=== PATIENT | male | born 1960 ===

== ENCOUNTER 2023-03-04 15:37 | Outpatient (REF) | payer MEDICARE, MEDICAID, SELFPAY | END 2023-03-04 15:38 | disposition home or self-care (01) | LOC: HO.US 15:37 | PROVIDERS: PCP Pediatrics; Visit Provider Pediatrics | DX: R22.1 Localized swelling, mass and lump, neck (principal) | CPT/HCPCS: 76536 ==

== ENCOUNTER 2024-02-03 11:01 | Outpatient (REF) | payer MEDICARE, SELFPAY ==
--- NOTE | ~2024-02-03 | XR_ITS ---
EXAMINATION: XR ANKLE, LEFT CLINICAL INFORMATION: Chronic pain left ankle. COMPARISON: None available. TECHNIQUE: AP, lateral, and mortise views of the left ankle. FINDINGS: Radiopaque marker placed by technologist to indicate the area of concern as indicated by the patient along the lateral malleolus. Ankle joint effusion present. Soft tissue swelling at the ankle. Mild spurring along the posterior aspect of the calcaneus. Ankle mortise is premiered. No acute displaced fractures appreciated. XR/XR ankle LT min 3V IMPRESSION: Ankle joint effusion. Soft tissue swelling. No acute displaced fracture. Recommend follow-up imaging in 10-14 days if fracture is suspected.
== END 2024-02-03 11:02 | disposition home or self-care (01) ==
LOC: HO.XRAY 11:01
PROVIDERS: PCP Pediatrics; Visit Provider Family Medicine
DX: M25.572 Pain in left ankle and joints of left foot (principal); G89.29 Other chronic pain
CPT/HCPCS: 73610

== ENCOUNTER 2024-04-16 08:59 | Outpatient (AMB) | payer MEDICARE, SELFPAY ==
--- NOTE | 2024-04-16 09:15 | A.OFFVIS_ITS ---
Vital Signs 04/16/24 09:18 Weight 160 lb Intake Visit Reasons: localized swelling/mass neck Intake Note: Pt states, I've had this bump on my back for 4-5 years. c/o 2 areas - lower back and upper back. Gear Lapping Machine Operator Required: Yes Gear Lapping Machine Operator Language: Corporate Scheduler Services: Gear Lapping Machine Operator Present Gear Lapping Machine Operator Name: Helene KIRKPATRICK Allergies No Known Allergies Allergy (Verified 04/16/24 09:20) Medication List - Last Reconciled 04/16/24 by Mundo Eduardo, RN clonazepam 1 mg PO BEDTIME omeprazole 20 mg PO DAILY HPI Comments Details: Patient was who presents for evaluation to a soft tissue masses. Were uninvolved with the posterior neck and 1 involves the right lower flank. Patient has lost a significant amount of weight and has noticed these 2 masses. The are increasing in size, becoming more symptomatic. He would like to have them removed. Patient has no such lesions elsewhere. Chart was reviewed and patient evaluate [facility] Medical History (Updated 04/16/24 @ 09:23 by Mundo Eduardo, HENNA) Chronic motor tic disorder Surgical History (Updated 04/16/24 @ 09:34 by Jeison Otto MD) History of colonoscopy Family History (Updated 04/16/24 @ 09:26 by Mundo Eduardo, RN) Father Prostate cancer Social History Alcohol intake: never Patient Tobacco Use Status: Never used Tobacco Physical Exam Chest Other: Chest breath sounds bilaterally, HS 1 in 2 GI Other: Abdomen is soft, benign Back/Spine/Pelvis Other: Upper posterior neck a proximally 4 x 3 cm soft tissue mass consistent with either lipoma or sebaceous cyst. 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 All questions answered. Arrangements were made for this. Coding Level of Care Code New Pt Level 5 (61758) Diagnoses Lipomatosis gigantea E88.2 Lipoma D17.9
== END 2024-04-16 09:30 | disposition home or self-care (01) ==
PROVIDERS: PCP Pediatrics; Visit Provider Surgery
DX: E88.2 Lipomatosis, not elsewhere classified (principal); D17.9 Benign lipomatous neoplasm, unspecified
CPT/HCPCS: 99204

== ENCOUNTER → 2024-04-16 08:59 | Outpatient (BNVA) | payer MEDICARE, SELFPAY | PROVIDERS: PCP Pediatrics; Visit Provider Surgery | DX: E88.2 Lipomatosis, not elsewhere classified (principal); D17.9 Benign lipomatous neoplasm, unspecified | CPT/HCPCS: 99202 ==

== ENCOUNTER → 2024-05-03 10:13 | Day surgery (SDC) | payer MEDICARE, SELFPAY ==
[2024-05-01 13:54] VITALS: BMI 28.0
--- NOTE | 2024-05-02 08:44 | P.HPSUR_ITS ---
Pre-Procedural Eval Section A - 24 Hr Update-Section A only Date of Service: 05/03/24 The patient is an INPATIENT: No Changes since office visit: No Cold of Flu in the past 2 weeks, No New Medical Problems, No Changes in Medication and No Patient answered all questions Section B - Complete if H&P > 30 days Chief Complaint: Lipomatosis, not elsewhere classified Allergies: Allergies Allergy/AdvReac Type Severity Reaction Status Date / Time No Known Allergies Allergy Verified 04/16/24 09:20 Review of Systems Sugical H&P ROS: Negative: Constitution, Cardiovascular, Respiratory, Neurological, Psychiatric, Hem-Onc, Allergic/Immunologic, Gastrointestinal, Genitourinary, Musculoskeletal, Integumentary, Endocrine and Eyes/Ears/Nos e/Throat Exam Surgical H&P Exam: Normal: HEENT, Normal: Heart, Normal: Lungs, Normal: Extremities, Normal: Abdomen, Normal: Skin and Normal: Neurological Plan I have reviewed the history and physical and performed a pertinent physical examination on my patient. No changes have occurred unless specified. Time Spent With Patient Time: Total time managing care of this patient today ____ minutes.
--- NOTE | 2024-05-02 09:46 | HO.ANESPROP2 ---
HPI - Anesthesia Eval Consult details Narrative: 64yo M for Right Wide Local Excision LG Flank Lipoma, Posterior Wide Local Excision Neck Lipoma PMFSH Active Problems Active Problems: All Active Problems Lipoma (Acute) Lipomatosis gigantea (Acute) GERD (gastroesophageal reflux disease) (Acute) Past Medical History Medical History (Updated 04/16/24 @ 09:23 by Mundo Eduardo RN) Chronic motor tic disorder Family History Family History (Updated 04/16/24 @ 09:26 by Mundo Eduardo RN) Father Prostate cancer Surgical History Surgical History (Updated 04/16/24 @ 09:34 by Jeison Otto MD) History of colonoscopy Social History Social History (Updated 04/16/24 @ 09:34 by Mundo Eduardo RN) Alcohol intake: never Patient Tobacco Use Status: Never used Tobacco Meds Allergies Allergy/AdvReac Type Severity Reaction Status Date / Time No Known Allergies Allergy Verified 04/16/24 09:20 Home Medications ?Medication ?Instructions ?Recorded ?Confirmed ?Last Taken ?Type clonazepam 1 mg tablet 1 mg PO BEDTIME 04/16/24 04/16/24 Unknown History omeprazole 20 mg capsule,delayed 20 mg PO DAILY 04/16/24 04/16/24 Unknown History release Exam Height,Weight and Vital Signs: Height 5 ft 3 in Weight 71.668 kg Assessment and Plan Assessment Anesthesia Assessment: Chart Reviewed
== END ==
LOC: HO.SSS 10:14
PROVIDERS: PCP Pediatrics; Visit Provider Surgery
DX: D17.1 Benign lipomatous neoplasm of skin and subcutaneous tissue of trunk (principal); D17.0 Benign lipomatous neoplasm of skin and subcutaneous tissue of head, face and neck; Z53.8 Procedure and treatment not carried out for other reasons

== ENCOUNTER → 2024-05-10 08:39 | Day surgery (SDC) | payer MEDICARE, SELFPAY ==
--- NOTE | 2024-05-09 14:15 | P.HPSUR_ITS ---
Pre-Procedural Eval Section A - 24 Hr Update-Section A only Date of Service: 05/10/24 The patient is an INPATIENT: No Changes since office visit: No Cold of Flu in the past 2 weeks, No New Medical Problems, No Changes in Medication and No Patient answered all questions Section B - Complete if H&P > 30 days Chief Complaint: Lipomatosis,Benign lipomatous neoplasm, Allergies: Allergies Allergy/AdvReac Type Severity Reaction Status Date / Time No Known Allergies Allergy Verified 04/16/24 09:20 Review of Systems Sugical H&P ROS: Negative: Constitution, Cardiovascular, Respiratory, Neurological, Psychiatric, Hem-Onc, Allergic/Immunologic, Gastrointestinal, Genitourinary, Musculoskeletal, Integumentary, Endocrine and Eyes/Ears/N ose/Throat Exam Surgical H&P Exam: Normal: HEENT, Normal: Heart, Normal: Lungs, Normal: Extremities, Normal: Abdomen, Normal: Skin and Normal: Neurological Plan I have reviewed the history and physical and performed a pertinent physical examination on my patient. No changes have occurred unless specified. Time Spent With Patient Time: Total time managing care of this patient today ____ minutes.
== END ==
LOC: HO.SSS 08:40
PROVIDERS: PCP Pediatrics; Visit Provider Surgery
DX: D17.9 Benign lipomatous neoplasm, unspecified (principal); Z53.20 Procedure and treatment not carried out because of patient's decision for unspecified reasons

== ENCOUNTER 2025-04-26 08:32 | Outpatient (REF) | payer MEDICARE, SELFPAY ==
--- OUTSIDE RECORDS SUMMARY | 2025-04-26 08:47 | XMS_ITS | Clinical Summary ---
Author Organization [employer] Address [address] [place] [address] Care Team Providers Care Histology Aide Name Role Phone Jeannie Ling MD Primary Care Provider [phone] Allergies No known active allergies Medications cyclobenzaprine (Flexeril) 5 MG tablet TAKE 1 TABLET BY MOUTH TWICE DAILY NEEDED FOR PAIN 15 tablet 3 3 Active senna (Senokot) 8.6 MG tablet Take 1 tablet by mouth in the morning. 3 Active Diclofenac Sodium 1 % gel APPLY 2 GRAMS TOPICALLY TO THE AFFECTED AREA TWICE DAILY 100 g 3 Active cloNIDine (Catapres) 0.1 MG tablet TAKE 1 TABLET BY MOUTH EVERY NIGHT AT BEDTIME FOR ANXIETY 30 tablet 3 4 Active senna (Senokot) 8.6 MG tabletIndication s:Chronic idiopathic constipation TAKE 1 TABLET BY MOUTH EVERY MORNING 90 tablet 1 5 Active fluticasone (Flonase) 50 MCG/ACT nasal spray SPRAY ONCE NASALLY EVERY DAY 48 g 3 5 Active omeprazole (PriLOSEC) [address] capsule TAKE 1 CAPSULE BY MOUTH EVERY DAY 30 MINUTES TO 1 HOUR BEFORE A MEAL 90 capsule 1 5 Active clonazePAM (KlonoPIN) 0.5 MG tabletIndication s:Anxiety TAKE 1 TABLET(0.5 MG) BY MOUTH EACH DAY NEEDED FOR ANXIETY 28 tablet 5 Active loratadine (Claritin) 10 MG tablet Take 1 tablet by mouth at bed time. 9 04/25/20 25 Discontin ued(Thera py completed ) tiZANidine (Zanaflex) 4 MG capsuleIndicatio ns:Neck muscle spasm Take 1 capsule (4 mg) by mouth 3 times daily. 90 capsule 11 3 04/25/20 25 Discontin ued(Thera py completed ) Active Problems Problem Noted Date Diagnosed Date Long-term current use of benzodiazepine 11/06/19 25 Localized swelling of left foot 02/03/2024 Chronic pain of left ankle 02/03/2024 Assessment & Plan (02/03/2024 10:30 AM EDT): Dx ankle kiesha of anterior tibiofibular ligament & medial ligament, will send to PT and also podiatry Abnormality of nail surface 02/03/2024 Assessment & Plan (02/03/2024 11:46 AM EDT): Pt attempted to treat it with over the counter medications, but abnormality remains. -Referral to Podiatry Chronic motor tic disorder 09/30/2015 Allergic rhinitis 06/06/2012 Diverticular disease of colon 06/06/2012 Gastroesophageal reflux disease 06/06/2012 Obstructive sleep apnea of adult 06/06/2012 Resolved Problems Problem Noted Date Diagnosed Date Resolved Date Chronic hepatitis C 06/06/2012 04/25/20 25 Encounters Date Type Department Care Team Description 04/25/2025 1:30 PM EDT Office Visit [facility] [address] [place] [address] Jeannie Ling MD Encounter for immunization (Primary Dx); Routine general medical examination at a health care facility; Obstructive sleep apnea of adult; Chronic motor tic disorder; Dietary counseling; Exercise counseling 04/25/2025 Travel 04/25/2025 Telephone [facility] [address] [place] [address] Jeannie Ling MD Chart Prep 03/19/2025 Refill [facility] [address] [place] [address] Jeannie Ling MD Anxiety 03/11/2025 Refill [facility] [address] [place] [address] Jeannie Ling MD 02/04/2025 10:00 AM EDT Telemedicine [facility] [address] [place] [address] Jada Sin RN Anxiety 02/04/2025 Telephone [facility] [address] [place] [address] Jada Sin, RN Error (VOID this visit) 02/04/2025 Travel from Last 3 Months Immunizations Immunization Administration Dates Next Due Hep B, adult 03/22/2003,09/10/2002,08/01/2002 Influenza Injectable Quadriv alant Preservative Free IIV4 MDCK 06/09/2022,05/18/2020 Influenza injectable quadriv alent IIV4 with preservative 07/03/2019,05/26/2018,08/25/2017,06/08,07/01/2015 Influenza injectable quadriv alent preservative free 06/09/2023 Influenza, IIV3, injectable 07/07/2021, 4 Influenza, Split (incl. princess fied surface antigen) 06/06/2012 Influenza, trivalent, adjuvanted 05/28/2024 Pneumococcal Conjugate PCV 20 04/25/2025 Pneumococcal Polysaccharide PPSV23 04/11/2014 Tdap 09/30/2015 Zoster, Recombinant 03/23/2018 Social History Tobacco Use Types Packs/Day Years Used Date Smoking Tobacco: Never Passive Smoke Exposure: Never Smokeless Tobacco: Never Tobacco Cessation:Counseling Given: Not Answered Alcohol Use Standard Drinks/Week Comments Never 0 (1 standard drink = 0.6 oz pur e alcohol) Depression Answer Date Recorded Patient Health Questionnaire-9 Score 0 04/25/2025 Patient Health Questionnaire-9 Score 0 04/25/2025 Last PHQ-9: Questionnaire Data Not on file 0 04/25/2025 Housing Stability Answer Date Recorded What is your housing situation today? I have daniel sing 04/25/[address] you li ve. Do you have problems with any of the following? None of the above 04/25/2025 Food Insecurity Answer Date Recorded Within the past 12 months, y ou worried that your food would run out before you got money to buy more: Never True 04/25/2025 Within the past 12 months,th e food you bought just didn't last and you didn't have enough money to get more: Never True Transportation Answer Date Recorded In the past 12 months, has l ack of transportation kept you from medical appts, meetings, work or from getting things needed for daily living? No 04/25/2025 Utilities Answer Date Recorded In the past 12 months, has t he electric, gas, oil or water company threatened to shut off services in your home? No 04/25/2025 Depression Answer Date Recorded Patient Health Questionnaire-2 Score 0 04/25/2025 Internet Access Answer Date Recorded Internet Access Q1 Yes 04/25/2025 Internet Access Q2 Not on file 04/25/2025 Sex and Gender Information Value Date Recorded Sex Assigned at Male 07/05/2022 10:20 AM EDT Legal Sex Male 10:20 AM EDT Gender Identity Male 07/05/2022 10:20 AM EDT Sexual Orientation Choose not to disclose 2021 10:20 AM EDT Last Filed Vital Signs Vital Sign Reading Time Taken Comments Blood Pressure 130/78 04/25/2025 1:27 PM EDT Pulse 64 04/25/2025 1:27 PM EDT Temperature 36.6 C (97.9 F) 04/25/2025 1:27 PM EDT Respiratory Rate 16 04/25/2025 1:27 PM EDT Oxygen Saturation 99% 03/29/2024 9:15 AM EDT Inhaled Oxygen Concentration - - Weight 71.7 kg (158 lb) 04/25/2025 1:27 PM EDT Height 167.3 cm (5' 5.88 ) 04/25/2025 1:27 PM ED T Body Mass Index 25.59 04/25/2025 1:27 PM EDT Plan of Treatment Upcoming Encounters Date Type Department Care Team (Late st Contact Info) Description 05/07/2025 11:00 AM EDT Clinical Support [facility] [address] [place] [address] Jada Sin RN [address] [place] [address] Health Maintenance Due Date Last Done Comments CT Colonography 1959 FIT DNA/Cologuard 1959 FIT 1959 FOBT 1959 Sigmoidoscopy 1959 Alcohol/Substance Use Screening 1971 Hepatitis C Screening 1977 Zoster Vaccines (2 of 2) 05/18/2018 03/23/2018 COVID-19 Vaccine ( season) 2024 05/28/2024, 08/06/2023, 07/15/2022, Additional history exists Influenza Vaccine (#1) 2025 , 06/09/2023, 06/09/2022, Additional history exists Lipid Panel 05/09/2025 05/09/2020 DTaP/Tdap/Td Vaccines (2 - Td or Tdap) 09/30/2025 09/30/2015 Depression Screening 04/25/2026 04/25/2025, 04/25/20 25 SDOH Screening 04/25/2026 04/25/2025 Tobacco Screening 04/25/2026 04/25/2025 Colonoscopy 07/15/2031 07/15/2021 Colorectal Cancer Screening 07/15/2031 RSV Patients and Patients Aged 60 years or older (1 - 1-dose 75+ series) 2034 Hepatitis B Vaccines Completed 03/22/2003, 09/10/2002, 08/01/2002 Pneumococcal Vaccine: 50+ Years Completed 04/25/2025, 04/11/2014 HIB Vaccines Aged Out No longer eligi ble based on patient's age to complete this topic HPV Vaccines Aged Out No longer eligi ble based on patient's age to complete this topic Hepatitis A Vaccines Aged Out No long er eligible based on patient's age to complete this topic IPV Vaccines Aged Out No longer eligi ble based on patient's age to complete this topic Meningococcal B Vaccine Aged Out No l onger eligible based on patient's age to complete this topic Meningococcal Vaccine Aged Out No jacqueline nafisa eligible based on patient's age to complete this topic RSV under 20 months Aged Out No longe r eligible based on patient's age to complete this topic Rotavirus Vaccines Aged Out No longer eligible based on patient's age to complete this topic Procedures Procedure Name Priority Date/Time Associated Diagnosis Comments HM COLONOSCOPY Routine 07/15/2021 LIPID PANEL, STANDARD Routine 05/09/2020 8:50 AM EDT from Last 3 Months or Most Recently Relevant to Health Maintenance Results * Hm Colonoscopy (07/15/2021) Colonoscopy Normal Normal us Jeannie Ling MD HEALTH MAINTENANCE Final Resu lt * (ABNORMAL) LIPID PANEL, STANDARD (05/09/2020 8:50 AM EDT) Cholesterol, Total 198 <200 mg/dL [facility] HDL Cholesterol 57 > OR = 40 mg/dL [facility] Triglycerides 81 <150 mg/dL [facility] LDL Cholesterol 123(H) mg/dL (calc) [facility] Comment: Reference range: <100 Desirable range <100 mg/dL for primary prevention; <70 mg/dL for patients with CHD or diabetic patients with > or = 2 CHD risk factors. LDL-C is now calculated using the Patrick-Frias calculation, which is a validated novel method providing better accuracy than the Friedewald equation in the estimation of LDL-C. Patrick SS et al. ANNMARIE. 2013;310(19): 4662-5741 (http://education.imeem.P[employer]wide/faq/PIW718) Chol/HDLC Ratio 3.5 <5.0 (calc) [facility] Non-HDL Cholesterol 141(H) <130 mg/dL (calc) [facility] Comment: For patients with diabetes plus 1 major ASCVD risk factor, treating to a non-HDL-C goal of <100 mg/dL (LDL-C of <70 mg/dL) is considered a therapeutic option. Cholesterol, Total 198 <200 mg/dL [facility] HDL Cholesterol 57 > OR = 40 mg/dL [facility] Triglycerides 81 <150 mg/dL [facility] LDL Cholesterol 123(H) mg/dL (calc) [facility] Comment: Reference range: <100 Desirable range <100 mg/dL for primary prevention; <70 mg/dL for patients with CHD or diabetic patients with > or = 2 CHD risk factors. LDL-C is now calculated using the Patrick-Frias calculation, which is a validated novel method providing better accuracy than the Friedewald equation in the estimation of LDL-C. Patrick SS et al. ANNMARIE. 2013;310(19): 5699-7005 (http://education.Nutraspace/faq/WEL751) Chol/HDLC Ratio 3.5 <5.0 (calc) [facility] Non-HDL Cholesterol 141(H) <130 mg/dL (calc) [facility] Comment: For patients with diabetes plus 1 major ASCVD risk factor, treating to a non-HDL-C goal of <100 mg/dL (LDL-C of <70 mg/dL) is considered a therapeutic option. 05/09/2020 8:50 AM EDT us Jeannie Ling MD LAB BLOOD ORDERABLES Final Re sult [facility] [address] from Last 3 Months or Most Recently Relevant to Health Maintenance Insurance [employer] MEDICARE ADVANTAGE HMO Care Teams Histology Aide Relationship Specialty Start Date End Date Jeannie Ling MD [address] [place] [id number] PCP - General Family Medicine 09/05/18
[2025-04-26 15:49] LABS: MANUAL DIFF FLAG NO
[2025-04-26 16:17] LABS: Hematocrit 45.8 % (42.0-52.0); Hemoglobin 15.5 g/dl (14.0-18.0); Imm Gran Abs Auto 0.01 X10*3/uL (0.00-0.03); Imm Gran Pct Auto 0.2 % (0.0-0.4); Lymphocytes Absolute Auto 0.8 X10*3/uL (1.2-4.9); Mean Corpuscular HGB Conc 33.8 g/dl (31.0-36.0); Mean Corpuscular Hemoglobin 31.9 pg (27.0-33.0); Mean Corpuscular Volume 94.2 fL (80.0-98.0); NRBC Abs Auto 0.000 X10*3/uL (0.0-0.012); NRBC Pct Auto 0.0 /100WBC (0.0-0.2); Platelet Count 146 X10*3/uL (160-400); Red Blood Count 4.86 X10*6/uL (4.60-5.80); White Blood Count 6.6 X10*3/uL (4.8-10.8)
[2025-04-26 16:32] LABS: Alanine Aminotransferase 22 U/L (0-40); Albumin Level 4.6 g/dL (3.5-5.0); Alkaline Phosphatase 39 U/L (39-117); Anion Gap 13 (12-20); Aspartate Amino Transferase 26 U/L (5-37); Blood Urea Nitrogen 14 mg/dL (9-16); Calcium 9.5 mg/dL (8.4-10.2); Carbon Dioxide 29 mmol/L (22-29); Chloride 104 mmol/L (96-108); Cholesterol 245 mg/dL (<200); Estimated Glomerular Filt Rate > 60; HDL Cholesterol 78 mg/dL (>40); Potassium 4.6 mmol/L (3.3-5.1); Sodium 141 mmol/L (135-145); Total Protein 7.6 g/dL (6.5-8.0); Triglycerides 84 mg/dL (<150)
[2025-04-26 17:06] LABS: Folate 6.2 ng/mL (> or = 4.0); Vitamin B12 321 pg/mL (200-900)
== END 2025-04-26 08:33 | disposition home or self-care (01) ==
LOC: HO.CHCLDS 08:32
PROVIDERS: Visit Provider Pediatrics
DX: Z00.00 Encounter for general adult medical examination without abnormal findings (principal); G47.33 Obstructive sleep apnea (adult) (pediatric); F95.1 Chronic motor or vocal tic disorder; Z13.6 Encounter for screening for cardiovascular disorders; Z12.5 Encounter for screening for malignant neoplasm of prostate; Z13.29 Encounter for screening for other suspected endocrine disorder
CPT/HCPCS: 36415; 80048; 80061; 80076; 82306; 82607; 82746; 84153; 84443; 85025